=== PATIENT | female | born 1980 | race Two or more races ===

== ENCOUNTER 2018-12-05 06:37 | Emergency (ER) | payer SELFPAY ==
[~2018-12-05] VITALS: Ht 167.6 cm; Wt 68.0 kg
[2018-12-05] MEDS ORDERED: NKM (06:41)
--- NOTE | 2018-12-05 06:42 | NUR ---
ED Nurse Note: Patient presents with complaints of vomitting and abdominal and generalized pain d/t drinking with antabuse in her system.
--- NOTE | 2018-12-05 06:46 | Emergency Room Report ---
History of Present Illness General Chief Complaint: Alcohol Intoxication Source: Patient, EMS Present Illness HPI 38-year-old female with history of alcohol abuse disorder currently taking 250 mg of Antabuse every night for the past 4 months, presents with myalgias, nausea , multiple bouts of vomiting nonbloody nonbilious, [id number] material since last night after drinking 4 bottles of wine. She reports the pain she's feeling feels like "carpal tunnel syndrome all over my body". She reports is the first time that she generally tries drinking since starting her Antabuse therapy. She denies chest pain, seizures, loss consciousness, and is not sure if she is or not. Allergies: Coded Allergies: No Known Allergies (Unverified , 12/05/18) Patient History Past Medical History: see triage record Last Menstrual Period: unknown Now: No Reviewed Nursing Documentation: PMH: Agreed; PSxH: Agreed Nursing Documentation-PMH Past Medical History: No History, Except For Review of Systems All Other Systems: negative except mentioned in HPI Physical Exam Vital Signs Date Time Temp Pulse Resp B/P (MAP) Pulse Ox O2 Delivery O2 Flow Rate FiO2 12/05/18 06:38 98.2 80 20 Room Air Sp02 EP Interpretation: reviewed, normal General Appearance: alert, non-toxic, mild distress - from nausea Head: normocephalic Eyes: bilateral eye normal inspection, bilateral eye PERRL, bilateral eye EOMI ENT: normal ENT inspection, hearing grossly normal, normal pharynx, no angioedema, normal voice, dry mucus membranes Neck: normal inspection, full range of motion, supple, supple/symm/no masses Respiratory: chest non-tender, lungs clear, normal breath sounds, speaking full sentences, chest symmetrical, palpation of chest normal Cardiovascular #1: normal peripheral pulses, regular rate, rhythm, no edema Cardiovascular #2: 2+ radial (R), 2+ radial (L) Gastrointestinal: normal inspection, non tender, soft, no mass, no guarding, no rebound Rectal: deferred Genitourinary: normal inspection, no CVA tenderness Musculoskeletal: back normal, gait/station normal, normal range of motion, non- tender, no calf tenderness Neurologic: alert, oriented x3, responsive, cyber security manager III-XII nml as tested, motor strength/tone normal, sensory intact, speech normal Psychiatric: judgement/insight normal, memory normal, mood/affect normal, no suicidal/homicidal ideation Skin: normal color, no rash, warm/dry, normal turgor Lymphatic: no adenopathy Medical Decision Making Diagnostic Impression: Primary Impression: Acute alcoholic intoxication Additional Impression: Disulfiram adverse reaction ER Course patient with to reaction from Antabuse therapy mix with alcohol. He was given fluids, antiemetics, Ativan, morphine. Patient's labs revealed slightly low CO2 and elevated was given IV fluids, initially 1 L normal saline and then was given a second liter of IV fluids, this time D5 normal saline, patient was calm, resting comfortably the entire time no evidence for clinical hypoglycemia. I suspect her mild acidosis and ketosis to be dehydration as well as alcohol- related, then I discuss the case with the [place] poison control center and they reported that patient will have the Antabuse/disulfuram in her system for 7 -10 days because it is absorbed slowly from the GI tract, and also metabolizes slowly. However they did report that the peak serum concentration is expected in 8-12 hours, therefore I will treat patient clinically, give a PO challenge, and discharge as soon as patient is able to tolerate it. HCG negative. Patient felt better upon re-evaluation. Will give Rx for pepcid and zofran. Diagnosis: EtOH abuse and Disulfuram reaction Disposition: Discharge home with instructions to avoid EtOH and hold tonight's Antabuse dose, then resume tomorrow night once EtOH levels metabolize down to zero, take zofran prn, pepcid bid Reevaluation Time: 08:31 Last Vital Signs Date Time Temp Pulse Resp B/P (MAP) Pulse Ox O2 Delivery O2 Flow Rate FiO2 12/05/18 06:38 98.2 80 20 Room Air Status: improved Reevaluation Impression patient feels much better after fluids and medications, abdominal exam still soft and benign Disposition: HOME, SELF-CARE Condition: Stable Scripts Ondansetron* (ZOFRAN*) 4 Mg Tablet 4 MG ORAL Q6H PRN for Nausea & Vomiting, #10 TAB Prov: WEN MERCHANT M.D 12/05/18 Famotidine (PEPCID AC) 20 Mg Tablet 20 MG PO BID for 7 Days, #14 TAB Prov: WEN MERCHANT M.D 12/05/18 WEN MERCHANT M.D December 05, 2018 06:46
[2018-12-05 06:56] VITALS: BP 150/81
[2018-12-05] MEDS ORDERED: Morphine Sulfate 2mg/ml Inj(IV/IM USE ONLY) IVP ONE (07:00)
[2018-12-05] MEDS ORDERED: LORazepam Inj 2mg/ml 1ml IV ONE (07:00)
[2018-12-05 07:07] LABS: HEMATOCRIT 41.3 % (37.0-47.0); HEMOGLOBIN 14.7 G/DL (12.0-16.0); MEAN CORPUSCULAR VOLUME 88 FL (80-99); PLATELET COUNT 363 K/UL (150-450); RED BLOOD COUNT 4.69 M/UL (4.20-5.40); RED CELL DISTRIBUTION WIDTH 11.1 % (11.6-14.8); WHITE BLOOD COUNT 12.2 K/UL (4.8-10.8)
--- NOTE | 2018-12-05 07:11 | NUR ---
ED Nurse Note: Patient currently resting with eyes closed, IV medication rendered, IV fluids running. PAtient is A&Ox4, vital signs are stable. IV placed at left AC 20G, blood sent down to lab. Still waiting for patient to void.
[2018-12-05 07:13] VITALS: BP 116/67
[2018-12-05 07:15] LABS: ANION GAP 18 mmol/L (5-15); BLOOD UREA NITROGEN 12 mg/dL (7-18); CALCIUM 8.5 MG/DL (8.5-10.1); CARBON DIOXIDE 18 MMOL/L (21-32); CHLORIDE 103 MMOL/L (98-107); CREATININE 0.8 MG/DL (0.55-1.30); POTASSIUM 4.1 MMOL/L (3.5-5.1); SODIUM 139 MMOL/L (136-145)
[2018-12-05 07:19] LABS: ALANINE AMINOTRANSFERASE 36 U/L (12-78); ALBUMIN 4.2 G/DL (3.4-5.0); ALBUMIN/GLOBULIN RATIO 1.1 (1.0-2.7); ALKALINE PHOSPHATASE 65 U/L (46-116); ASPARTATE AMINO TRANSFERASE 25 U/L (15-37); BILIRUBIN,TOTAL 0.2 MG/DL (0.2-1.0)
--- NOTE | 2018-12-05 07:32 | NUR ---
ED Nurse Note: REPORT RECEIVED FROM SHANIQUA RODRIGUEZ. PT SLEEPING PEACEFULLY IN BED IN NAD. AOX4. VSS.
[2018-12-05 07:33] VITALS: BP 112/61
[2018-12-05] MEDS: D5NS 1,000 ML IV SCH ×2 (07:51→09:01)
--- NOTE | 2018-12-05 08:05 | NUR ---
ED Nurse Note: URINE COLLECTED AND SENT TO LAB.
[2018-12-05 08:15] LABS: APPEARANCE,URINE CLEAR; BILIRUBIN, URINE NEGATIVE (NEGATIVE); COLOR,URINE PALE YELLOW; GLUCOSE, URINE (UA) 1+ (NEGATIVE); KETONES,URINE 3+ (NEGATIVE); LEUKOCYTE ESTERASE ,URINE NEGATIVE (NEGATIVE); NITRITE,URINE NEGATIVE (NEGATIVE); PH,URINE 5 (4.5-8.0); PROTEIN,URINE NEGATIVE (NEGATIVE); UROBILINOGEN,URINE NORMAL MG/DL (0.0-1.0)
[2018-12-05] MEDS ORDERED: ZOFRAN4 M3 ORAL (08:25)
[2018-12-05] MEDS ORDERED: PEPCID AC20 M2 PO (08:25)
--- NOTE | 2018-12-05 08:44 | NUR ---
ED Nurse Note: PT GIVEN FOOD AND JUICE. PT TOLERATED WELL. PT AOX4 AND ANSWERING ALL QUESTIONS APPROPRIATELY.
--- NOTE | 2018-12-05 08:55 | NUR ---
ED Nurse Note: PT GIVEN BREAKFAST TRAY. TOLERATING FOOD AND DRINK WELL.
--- NOTE | 2018-12-05 09:45 | NUR ---
ED Nurse Note: PT LAYING PEACEFULLY IN BED IN NAD. AOX4. PRESCRIPTIONS AND DISCHARGE PAPERWORK EXPLAINED TO PT. PT VERBALIZES UNDERSTANDING AND ALL QUESTIONS ANSWERED. PRESCRIPTIONS AND DISCHARGE PAPERWORK GIVEN TO PT, IV AND ID WRISTBAND REMOVED. PT WALKED OUT OF ER WITH STEADY GAIT AND ALL BELONGINGS.
[2018-12-05 09:46] VITALS: BP 116/68
== END 2018-12-05 09:45 | disposition home or self-care (01) ==
LOC: EDBD 06:37 → EMR 07:15
DX: F10.129 Alcohol abuse with intoxication, unspecified (principal); T88.7XXA Unspecified adverse effect of drug or medicament, initial encounter; T50.6X5A Adverse effect of antidotes and chelating agents, initial encounter; Y92.9 Unspecified place or not applicable
CPT/HCPCS: 36415; 80053; 81003; 81025; 83690; 84703; 85007; 85025; 96361; 96374; 96375; 99284; G0480; J2270; J2405; S0028; 80329